=== PATIENT | female | born 1940 | race Caucasian/White ===

== ENCOUNTER 2022-05-05 14:26 | Emergency (ER) | payer MEDICARE, BC ==
[2022-05-05 14:56] VITALS: BP 175/95; PULSE 71; O2SAT 98
--- NOTE | 2022-05-05 15:16 | ERPHSYRPT ---
- History of Present Illness Source: patient Exam Limitations: no limitations Patient Subjective Stated Complaint: Pt states "I fell at [employer] the other day and I knew I would hurt but my back is really hurting and there is an area of my left osei that I feel I just have to rub." Triage Nursing Assessment: Pt presented alert and oriented X 3, skin wpd Pt ambulates with a slow gait, pt limps slightly . Pt will occasionally moan. PT in no apparent respiratory distress. Physician History: Pt fell yesterday at a store and now complains of lumbar pain. She denies LOC/Head injury. Pt simply slipped. Occurred: yesterday Reason for Fall: slipped Loss of Consciousness: no loss of consciousness Quality: aching Severity of Pain-Max: moderate Severity of Pain-Current: moderate Modifying Factors: Improves With: movement Associated Symptoms (Fall): back pain, neck pain, No abdominal pain, No confusion, No chest pain, No dizziness, No extremity injury, No headache, No lightheadedness, No muscle spasms, No nausea, No ringing in ears, No seizures, No shortness of breath, No slurred speech, No trouble walking, No vomiting, No vision changes Allergies/Adverse Reactions: codeine Adverse Reaction (Verified 05/19/14 00:22) Home Medications: Aspirin 81 mg PO DAILY 05/19/14 [History] Metoprolol Tartrate 25 mg [Lopressor 25MG Tab] 25 mg PO DAILY 05/19/14 [History] Simvastatin 20 mg PO DAILY 05/19/14 [History] Hx Tetanus, Diphtheria Vaccination/Date Given: No Hx Influenza Vaccination/Date Given: Yes Hx Pneumococcal Vaccination/Date Given: Yes Immunizations Up to Date: Yes Travel Risk - International Travel Have you traveled outside of the country in past 3 weeks: No - Coronavirus Screening Are you exhibiting any of the following symptoms?: No Close contact with a COVID-19 positive Pt in past 14-21 Days: No - Vaccine Status Have you recieved a Covid-19 vaccination: Yes 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 - Vaccination Dates Date of 2cond Vaccination (if applicable): 2020 - Review of Systems Constitutional: No Symptoms Eyes: No Symptoms Ears, Nose, & Throat: No Symptoms Respiratory: No Symptoms Cardiac: No Symptoms Abdominal/Gastrointestinal: No Symptoms Genitourinary Symptoms: No Symptoms Musculoskeletal: No Symptoms, Back Pain, Neck Pain Skin: No Symptoms Neurological: No Symptoms Psychological: No Symptoms Endocrine: No Symptoms Hematologic/Lymphatic: No Symptoms Immunological/Allergic: No Symptoms - Past Medical History Pertinent Past Medical History: Yes Cardiac History: Hypertension Other Medical History: BLADDER CA - Past Surgical History Past Surgical History: Yes Musculoskeletal: Orthopedic Surgery Female Surgical History: Hysterectomy - Social History Smoking Status: Former smoker Exposure to second hand smoke: No Drug Use: none Patient Lives Alone: No Significant Family History: no pertinent family hx - Nursing Vital Signs Nursing Vital Signs: Initial Vital Signs Temperature 97.6 F 05/05/22 14:51 Pulse Rate 71 05/05/22 14:51 Respiratory Rate 20 05/05/22 14:51 Blood Pressure 175/95 05/05/22 14:51 O2 Sat by Pulse Oximetry 98 05/05/22 14:51 Pain Scale Pain Intensity 6 - Carley Coma Score Best Eye Response ([place]): (4) open spontaneously Best Verbal Response ([place]): (5) oriented Best Motor Response ([place]): (6) obeys commands [place] Total: 15 - Physical Exam General Appearance: no apparent distress Head Injury: no evidence of injury Eye Exam: PERRL/EOMI, eyes nml inspection ENT Exam: airway nml, nml ext.inspection, No evidence of ENT injury, No clear fluid (ears), No clear fluid (nose) Neck Exam: supple, trachea midline, tenderness (C-spine TTP) Respiratory/Chest Exam: normal breath sounds, No chest tenderness, No respiratory distress Cardiovascular Exam: normal heart sounds, regular rate/rhythm, normal peripheral pulses, No murmur Gastrointestinal Exam: soft, normal bowel sounds, No tenderness Back Exam: vertebral tenderness (T-spine nttp/L-spine TTP) Extremity Exam: normal inspection, capillary refill <3 sec, pelvis stable, bony point tenderness (L lateral hip TTP), other (Pt complains of L pre-tibial "numbness" but is NTTP wo deformity/ecchymosis/edema) Peripheral Pulses: carotid (R): 2+, carotid (L): 2+ Neurologic Exam: alert, oriented x 3, cooperative, network associate II-XII nml as tested, normal mood/affect, sensation nml, No motor deficits, No sensory deficit Skin Exam: normal color, warm, dry SpO2 Interpretation: normal SpO2: 98 O2 Delivery: Room Air - Course Nursing assessment & vital signs reviewed: Yes - CT Exams Cervical Spine CT Interpretation: Tele-radiologist Report (Nothing acute/DDD) Lumbar Spine CT Interpretation: Tele-radiologist Report (Nothing acute/Hypodense area R renal cortex) Pelvis CT Interpretation: Tele-radiologist Report (No fx) Ordered Tests: Active Orders 24 hr Category Date Time Status CERVICAL SPINE WO CONTRAST [CT] Stat Exams 05/05/22 15:07 Ordered LUMBAR SPINE W/O [CT] Stat Exams 05/05/22 15:08 Ordered PELVIS WITHOUT CONTRAST [CT] Stat Exams 05/05/22 15:08 Ordered - Progress Progress Note: 05/05/22 16:15 Pt refuses pain meds Pt advised to f/u about R renal cortex lesion Counseled pt/family regarding: diagnosis, need for follow-up, rad results - Departure Departure Disposition: Home Clinical Impression: Cervical strain, Lumbar strain, Contusion of left hip, Renal lesion Condition: Fair Critical Care Time: No Referrals: DOCTOR,NO FAMILY [Primary Care Provider] - Follow up/PCP as directed Instructions: Contusion (DC), Preventing Falls Additional Instructions: Motrin/Tylenol for pain Ice to contused areas today/Heat in AM Follow up with your family MD about right kidney lesion-most likely a cyst Return to ER as needed
--- NOTE | 2022-05-05 20:16 | XRAY ---
Indication: Pain following fall one day earlier. Multiple contiguous axial images obtained through the cervical spine. Sagittal and coronal reformatted images obtained. Comparison: None Osseous structures demineralized consistent with patient's age. No acute fracture, suspicious bony lesions, or spinal canal stenosis. There is mild/moderate C3-C7 degenerative endplate spurring greatest at C5-C6. Also mild/moderate multilevel bilateral degenerative facet hypertrophy and moderate atlantoaxial degenerative changes. Sagittal and coronal reformatted images demonstrate lordotic straightening, positional versus paraspinal spasm. C4-C7 degenerative disc space narrowing greatest at C5-C6. No acute compression fracture, subluxation, or jumped facet. Normal appearing craniocervical junction. Visualized noncontrasted soft tissues demonstrates mild bilateral carotid calcifications. Lung apices demonstrates pulmonary emphysema. Base of brain unremarkable. Impression: 1. Cervical lordotic straightening, positional versus paraspinal spasm. 2. Osteopenia and multilevel degenerative changes greatest at C5-C6. 3. Incidental carotid calcifications and pulmonary emphysema. Comment: Preliminary interpretation made by C. No critical discrepancy.
--- NOTE | 2022-05-05 20:20 | XRAY ---
Indication: Pain following fall. Multiple contiguous axial images obtained through the lumbar spine. Sagittal and coronal reformatted images obtained. Comparison: CT abdomen/pelvis April 07, 2010. Osseous structures demineralized consistent with patient's age. Marked progressive worsening moderate/advanced L2-L5 degenerative disc disease as evidenced by bony sclerosis, spurring, and vacuum disc phenomena. No acute fracture, suspicious bony lesions, or spinal canal stenosis. Mild/moderate L3-S1 degenerative facet hypertrophy. 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 Worsening L3-L5 disc space loss. Stable bilateral L5 spondylolysis without listhesis. Visualized noncontrasted soft tissues again demonstrates mild scattered aortoiliac calcifications, bilateral renal cortical scarring, right upper renal cyst, and splenic calcified granulomas. Visualized liver demonstrates enlarging 1.5 cm left lobe cyst/hemangioma. Impression: 1. No acute fracture/subluxation. 2. Osteopenia with progressive worsening moderate/advanced L2-L5 degenerative disc disease. 3. Again moderate dextrorotoscoliosis, L5 spondylolysis without listhesis, arteriosclerotic disease, bilateral renal cortical scarring, right renal cyst, and enlarging hepatic cyst. Comment: Preliminary interpretation made by [facility]. No critical discrepancy..
--- NOTE | 2022-05-05 20:24 | XRAY ---
Indication: Pain following fall. Multiple contiguous axial images obtained through the pelvis with special attention to osseous structures. Comparison: April 07, 2010. Osseous structures demineralized consistent with patient's age. Stable mild bilateral hip degenerative arthropathy and right acetabular sclerotic lesions favoring bone islands. No acute fracture, dislocation, or suspicious bony lesions. Visualized noncontrasted soft tissues again demonstrates scattered arteriosclerotic calcifications and hysterectomy. A few sigmoid diverticulosis without diverticulitis. No pelvic free fluid/air. CT lumbar spine reported separately. Impression: 1. Negative acute fracture/dislocation. 2. Incidental osteopenia, degenerative changes, right acetabular bone islands, and sigmoid diverticulosis.
== END 2022-05-05 16:20 | disposition home or self-care (01) ==
LOC: ED 14:26
DX: S16.1XXA Strain of muscle, fascia and tendon at neck level, initial encounter (principal); S39.012A Strain of muscle, fascia and tendon of lower back, initial encounter; S70.02XA Contusion of left hip, initial encounter; W01.0XXA Fall on same level from slipping, tripping and stumbling without subsequent striking against object, initial encounter; Y93.01 Activity, walking, marching and hiking; Y92.512 Supermarket, store or market as the place of occurrence of the external cause; N28.9 Disorder of kidney and ureter, unspecified; I10 Essential (primary) hypertension; Z79.899 Other long term (current) drug therapy
CPT/HCPCS: 72125; 72131; 72192; 99283

== ENCOUNTER 2022-05-10 21:19 | Emergency (ER) | payer MEDICARE, BC ==
--- NOTE | 2022-05-10 21:22 | ERPHSYRPT ---
- History of Present Illness Time Seen by Provider: 05/10/22 21:22 Source: patient Exam Limitations: no limitations Physician History: This is an 81-year-old white female who presents with a generalized body rash after being exposed to outdoors where was mowing the yard. She believes she has a reaction to poison will. She is not short of breath but uncomfortable with itching redness and swelling. She had no chest pain. She has no abdominal pain. Timing/Duration: today Quality: burning, itchy, painful Severity: moderate Location: generalized Possible Causes: poison will Allergies/Adverse Reactions: codeine Adverse Reaction (Verified 05/10/22 21:26) Home Medications: Aspirin 81 mg PO DAILY 05/19/14 [History] Metoprolol Tartrate 25 mg [Lopressor 25MG Tab] 25 mg PO DAILY 05/19/14 [History] Simvastatin 20 mg PO DAILY 05/19/14 [History] Amlodipine Besylate 5 mg [Norvasc 5 mg] 5 mg PO DAILY 05/10/22 [History] Calcium Carbonate [Calcium] 500 mg PO DAILY 05/10/22 [History] Chlorthalidone 25 mg PO PRN 05/10/22 [History] Olmesartan Medoxomil 20 mg [Benicar 20 MG] 20 mg PO DAILY 05/10/22 [History] Hx Tetanus, Diphtheria Vaccination/Date Given: No Hx Influenza Vaccination/Date Given: Yes Hx Pneumococcal Vaccination/Date Given: Yes Travel Risk - International Travel Have you traveled outside of the country in past 3 weeks: No - Coronavirus Screening Are you exhibiting any of the following symptoms?: No Close contact with a COVID-19 positive Pt in past 14-21 Days: No - Vaccine Status Have you recieved a Covid-19 vaccination: Yes 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 - Vaccination Dates Date of 2cond Vaccination (if applicable): 2020 - Review of Systems Constitutional: No Symptoms Eyes: No Symptoms Ears, Nose, & Throat: No Symptoms Respiratory: No Symptoms Cardiac: No Symptoms Abdominal/Gastrointestinal: No Symptoms Genitourinary Symptoms: No Symptoms Musculoskeletal: No Symptoms Skin: Rash Neurological: No Symptoms Psychological: No Symptoms Endocrine: No Symptoms Hematologic/Lymphatic: No Symptoms Immunological/Allergic: No Symptoms All Other Systems: Reviewed and Negative - Past Medical History Pertinent Past Medical History: Yes Cardiac History: Hypertension Other Medical History: BLADDER CA - Past Surgical History Past Surgical History: Yes Musculoskeletal: Orthopedic Surgery Female Surgical History: Hysterectomy - Social History Smoking Status: Former smoker Exposure to second hand smoke: No Drug Use: none Patient Lives Alone: No Significant Family History: no pertinent family hx - Nursing Vital Signs Nursing Vital Signs: Initial Vital Signs Temperature 97.4 F 05/10/22 21:31 Pulse Rate 84 05/10/22 21:31 Respiratory Rate 16 05/10/22 21:31 Blood Pressure 127/90 05/10/22 21:31 O2 Sat by Pulse Oximetry 97 05/10/22 21:31 Pain Scale Pain Intensity 0 - Physical Exam General Appearance: no apparent distress, alert, anxiety Eye Exam: PERRL/EOMI, eyes nml inspection Ears, Nose, Throat Exam: normal ENT inspection, moist mucous membranes Neck Exam: normal inspection, non-tender, supple, full range of motion Respiratory Exam: normal breath sounds, lungs clear, airway intact, No chest tenderness, No respiratory distress Cardiovascular Exam: regular rate/rhythm, normal heart sounds, normal peripheral pulses Gastrointestinal/Abdomen Exam: No tenderness Pelvic Exam: not done Rectal Exam: not done Back Exam: normal inspection, normal range of motion, No CVA tenderness, No vertebral tenderness Extremity Exam: normal inspection, normal range of motion, pelvis stable Neurologic Exam: alert, oriented x 3, cooperative, departmental buyer II-XII nml as tested, normal mood/affect, nml cerebellar function, nml station & gait, sensation nml Skin Exam: normal color, warm, dry Lymphatic Exam: No adenopathy SpO2 Interpretation: normal O2 Delivery: Room Air - Course Nursing assessment & vital signs reviewed: Yes Ordered Tests: Active Orders 24 hr Category Date Time Status Warranty Clerk STAT Care 05/10/22 21:39 Active IV Insertion STAT Care 05/10/22 21:38 Active Pulse Oximetry (ED) STAT Care 05/10/22 21:39 Active Medication Summary Discontinued Medications Generic Name Dose Route Start Last Admin Trade Name Freq PRN Reason Stop Dose Admin Methylprednisolone Sodium 0 mg 05/10/22 21:39 05/10/22 21:45 Succinate 125 mg/ Sterile IV 05/10/22 21:40 125 mg Water 2 ml STAT ONE Administration Diphenhydramine HCl 50 mg 05/10/22 21:39 05/10/22 21:45 Diphenhydramine Hcl 50 Mg/Ml Vial IV 05/10/22 21:40 50 mg STAT ONE Administration Diphenhydramine HCl Confirm 05/10/22 21:41 Diphenhydramine Hcl 50 Mg/Ml Vial Administered 05/10/22 21:42 Dose 50 mg .ROUTE .STK-MED ONE Famotidine 40 mg 05/10/22 21:39 05/10/22 21:46 Famotidine 20 Mg Tablet PO 05/10/22 21:40 Not Given STAT ONE Famotidine Confirm 05/10/22 21:41 Famotidine 20 Mg/1 Vial Administered 05/10/22 21:42 Dose 40 mg IV .STK-MED ONE Famotidine 40 mg 05/10/22 21:46 05/10/22 21:47 Famotidine 20 Mg/1 Vial IV 05/10/22 21:47 40 mg STAT ONE Administration Methylprednisolone Sodium Succinate Confirm 05/10/22 21:41 Methylprednis Sod Succ 125 Mg/2 Ml Vial Administered 05/10/22 21:42 Dose 125 mg .ROUTE .STK-MED ONE Sterile Water Confirm 05/10/22 21:41 Water For Injection,Sterile 10 Ml Vial Administered 05/10/22 21:42 Dose 10 ml IJ .STK-MED ONE - Progress Progress: improved - Departure Departure Disposition: Home Clinical Impression: Contact dermatitis Condition: Stable Critical Care Time: No Referrals: MILI LYNN MD [Primary Care Provider] - Follow up/PCP as directed Additional Instructions: Drink plenty fluids. Take Benadryl 25 mg orally 3 times a day for the next 5 days. Fill the Pepcid and steroid medication and take as prescribed. You will have an extra refill on the steroids if needed you can fill this again. Return to the emergency department if symptoms worsen. Follow-up with your primary care physician for persistent symptoms. Prescriptions: Prednisone 10 mg [Deltasone 10 mg] 10 mg PO TID #12 tablet Famotidine 20 mg [Pepcid 20 MG] 20 mg PO DAILY #10 tablet
[2022-05-10] MEDS ORDERED: Pepcid 20 MG PO ONE (21:39)
[2022-05-10] MEDS ORDERED: solu-MEDROL 125 MG, Sterile H2O 10 ml 2 ML IV ONE ×2 (21:39)
[2022-05-10] MEDS ORDERED: BENADRYL 50 MG/ML IV ONE (21:39)
[2022-05-10] MEDS ORDERED: Sterile H2O 10 ml IJ ONE (21:41)
[2022-05-10] MEDS ORDERED: solu-MEDROL ONE (21:41)
[2022-05-10] MEDS ORDERED: BENADRYL 50 MG/ML ONE (21:41)
[2022-05-10] MEDS ORDERED: Pepcid 20 MG VIAL IV ONE ×2 (21:41→21:46)
[2022-05-10 22:15] VITALS: BP 153/84; PULSE 80; O2SAT 98
== END 2022-05-10 22:18 | disposition home or self-care (01) ==
LOC: ED 21:19
DX: L25.9 Unspecified contact dermatitis, unspecified cause (principal); I10 Essential (primary) hypertension; Z79.899 Other long term (current) drug therapy; Z79.52 Long term (current) use of systemic steroids
CPT/HCPCS: 36000; 93041; 94760; 96374; 96375; 99284; J1200; J2930

== ENCOUNTER 2022-05-14 00:20 | Emergency (ER) | payer MEDICARE, BC ==
[2022-05-14] MEDS ORDERED: Pepcid 20 MG PO ONE (00:58)
[2022-05-14] MEDS ORDERED: solu-MEDROL 125 MG, Sterile H2O 10 ml 2 ML IM ONE ×2 (00:59)
[2022-05-14] MEDS ORDERED: ATARAX 25 MG PO ONE (00:59)
--- NOTE | 2022-05-14 01:05 | ERPHSYRPT ---
- History of Present Illness Time Seen by Provider: 05/14/22 00:50 Source: patient, family Exam Limitations: no limitations Patient Subjective Stated Complaint: pt states "I was seen in the ER recently for this rash. They said it was poison will and I don't think it is." Triage Nursing Assessment: Pt ambulatory to bed by self, pt alert and oriented x3, pt c/o rash since friday, pt was seen on friday for same complaint and prescribed steriods, pt is still currently taking the prednisone at this time and has another refill for it if needed, pt has rash located on bilateral inner thighs, pt states "it is in one place and then moves to another spot." Physician History: This is an 81-year-old white female who I saw on 05/10/2022 and diagnosed her with contact dermatitis possible poison will exposure. Patient had a generalized rash and the itching and rash significantly improved during her hospital in stay in the emergency department prior to her discharge to home. However, the last couple days her symptoms have recurred. At the time of the discharge on 05/10/2022, I told the patient that she may need to refill the steroids and therefore I gave her a refill of prednisone for her to take in the event the rash did not resolve completely. She has not done that at this time. She has no shortness of breath. She is had no fever. Patient last took Benadryl 5-1/2 hours ago. The last Pepcid she took was on 05/13/2020 2 in the morning. Quality: itchy Severity: mild (Moderate) Location: extremities Possible Causes: other (Contact dermatitisunknown) Allergies/Adverse Reactions: codeine Adverse Reaction (Verified 05/10/22 21:26) Home Medications: Aspirin 81 mg PO DAILY 05/19/14 [History] Metoprolol Tartrate 25 mg [Lopressor 25MG Tab] 25 mg PO DAILY 05/19/14 [History] Simvastatin 20 mg PO DAILY 05/19/14 [History] Amlodipine Besylate 5 mg [Norvasc 5 mg] 5 mg PO DAILY 05/10/22 [History] Calcium Carbonate [Calcium] 500 mg PO DAILY 05/10/22 [History] Chlorthalidone 25 mg PO PRN 05/10/22 [History] Olmesartan Medoxomil 20 mg [Benicar 20 MG] 20 mg PO DAILY 05/10/22 [History] Hx Tetanus, Diphtheria Vaccination/Date Given: No Hx Influenza Vaccination/Date Given: Yes Hx Pneumococcal Vaccination/Date Given: Yes Immunizations Up to Date: Yes Travel Risk - International Travel Have you traveled outside of the country in past 3 weeks: No - Coronavirus Screening Are you exhibiting any of the following symptoms?: No Close contact with a COVID-19 positive Pt in past 14-21 Days: No - Vaccine Status Have you recieved a Covid-19 vaccination: 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 - Vaccination Dates Date of 2cond Vaccination (if applicable): 2020 - Review of Systems Constitutional: No Symptoms Eyes: No Symptoms Ears, Nose, & Throat: No Symptoms Respiratory: No Symptoms Cardiac: No Symptoms Abdominal/Gastrointestinal: No Symptoms Genitourinary Symptoms: No Symptoms Musculoskeletal: No Symptoms Skin: Other (Welts on skin of bilateral lower extremities) Psychological: No Symptoms Endocrine: No Symptoms Hematologic/Lymphatic: No Symptoms Immunological/Allergic: No Symptoms All Other Systems: Reviewed and Negative - Past Medical History Pertinent Past Medical History: Yes Neurological History: No Pertinent History ENT History: No Pertinent History Cardiac History: Hypertension Respiratory History: No Pertinent History Endocrine Medical History: No Pertinent History Musculoskeletal History: No Pertinent History GI Medical History: No Pertinent History History: No Pertinent History Psycho-Social History: No Pertinent History Female Reproductive Disorders: No Pertinent History Other Medical History: BLADDER CA - Past Surgical History Past Surgical History: Yes Neuro Surgical History: No Pertinent History Cardiac: No Pertinent History Respiratory: No Pertinent History Gastrointestinal: No Pertinent History Genitourinary: No Pertinent History Musculoskeletal: Orthopedic Surgery Female Surgical History: Hysterectomy - Social History Smoking Status: Former smoker Exposure to second hand smoke: No Drug Use: none Patient Lives Alone: No Significant Family History: no pertinent family hx - Nursing Vital Signs Nursing Vital Signs: Initial Vital Signs Temperature 97.1 F 05/14/22 00:42 Pulse Rate 60 05/14/22 00:42 Respiratory Rate 16 05/14/22 00:42 Blood Pressure 145/90 05/14/22 00:42 O2 Sat by Pulse Oximetry 97 05/14/22 00:42 Pain Scale Pain Intensity 3 - Physical Exam General Appearance: no apparent distress, alert, anxiety Eye Exam: PERRL/EOMI, eyes nml inspection Ears, Nose, Throat Exam: normal ENT inspection, moist mucous membranes Neck Exam: normal inspection, non-tender, supple, full range of motion Respiratory Exam: normal breath sounds, lungs clear, airway intact, No chest tenderness, No respiratory distress Cardiovascular Exam: regular rate/rhythm, normal heart sounds, normal peripheral pulses Gastrointestinal/Abdomen Exam: soft, normal bowel sounds, No tenderness Pelvic Exam: not done Rectal Exam: not done Back Exam: normal inspection, normal range of motion, No CVA tenderness, No vertebral tenderness Extremity Exam: normal inspection, normal range of motion, pelvis stable Neurologic Exam: alert, oriented x 3, cooperative, cattle examiner II-XII nml as tested, normal mood/affect, nml cerebellar function, nml station & gait, sensation nml Skin Exam: other (Welt patches bilateral lower extremities upper thighs) Lymphatic Exam: No adenopathy SpO2 Interpretation: normal SpO2: 97 O2 Delivery: Room Air - Course Nursing assessment & vital signs reviewed: Yes - Progress Progress: improved Counseled pt/family regarding: diagnosis, need for follow-up - Departure Departure Disposition: Home Clinical Impression: Contact dermatitis, Environmental allergies, [place] Condition: Stable Critical Care Time: No Referrals: MILI LYNN MD [Primary Care Provider] - Follow up/PCP as directed Additional Instructions: Continue prednisone as prescribed. Refill your next 4 days of prednisone. Stop your Benadryl. Use hydroxyzine instead. Continue Pepcid daily. Call your primary care provider on the morning of 05/14/2022 to make arranges for follow-up appointment in the event your symptoms persist. Keep your skin moist with unscented skin moisturizer. Prescriptions: Hydroxyzine HCl 25 mg [Atarax 25 mg] 25 mg PO Q6H PRN #12 tablet PRN Reason: Itching
[2022-05-14] MEDS ORDERED: Pepcid 20 MG ONE (01:13)
[2022-05-14] MEDS ORDERED: Sterile H2O 10 ml IJ ONE (01:13)
[2022-05-14] MEDS ORDERED: solu-MEDROL ONE (01:14)
[2022-05-14] MEDS ORDERED: ATARAX 25 MG ONE (01:14)
[2022-05-14 01:31] VITALS: O2SAT 98
[2022-05-14 01:33] VITALS: BP 173/89; PULSE 68
== END 2022-05-14 01:33 | disposition home or self-care (01) ==
LOC: ED 00:20
DX: L25.9 Unspecified contact dermatitis, unspecified cause (principal); Z91.09 Other allergy status, other than to drugs and biological substances; R21 Rash and other nonspecific skin eruption; I10 Essential (primary) hypertension; Z79.899 Other long term (current) drug therapy
CPT/HCPCS: 96372; 99284; J2930; A9270-GY

== ENCOUNTER 2022-08-02 20:44 | Emergency (ER) | payer MEDICARE, BC ==
[2022-08-02] MEDS ORDERED: HYDROCODONE-ACETAMIN 2.5-108/5 ML SOLUTION PO STA ×2 (21:16→22:24)
[2022-08-02] MEDS ORDERED: HYDROCODONE-ACETAMIN 2.5-108/5 ML SOLUTION ONE ×2 (21:24→22:29)
--- NOTE | 2022-08-02 21:29 | ERPHSYRPT ---
- History of Present Illness Time Seen by Provider: 08/02/22 21:00 Source: patient Exam Limitations: no limitations Patient Subjective Stated Complaint: pt states she has been feeling ill since Friday, states she feels some congestion in her chest and has been coughing a l ot, tested positive at home for covid on friday. states she is worried about pneumonia Triage Nursing Assessment: pt is alert and oriented, able to answer questions correctly, lungs are clear, pt has dry cough. sats are 98% on R.A. Physician History: 81 years old female presented in the ER with chief complaint of worsening cough. Patient reports having dry cough for almost 1 week and was tested positive for COVID-19 5 days ago. She denies any fever chills, headache but does have some URI/sinus congestion. No difficulty breathing. No chest pain but some soreness. Patient is worried about getting pneumonia. Has oxygen saturation of 98% on room air. Timing/Duration: week(s) (1), gradual onset, worse Cough Quality/Degree: moderate, dry cough Possible Cause: illness exposure Modifying Factors: Worsens With: coughing Associated Symptoms: chest pain/soreness, cough, muscle aches, nasal congestion, sore throat, No fever, No chills, No shortness of breath Allergies/Adverse Reactions: codeine Adverse Reaction (Verified 05/10/22 21:26) Home Medications: Aspirin 81 mg PO DAILY 05/19/14 [History] Metoprolol Tartrate 25 mg [Lopressor 25MG Tab] 25 mg PO DAILY 05/19/14 [History] Simvastatin 20 mg PO DAILY 05/19/14 [History] Amlodipine Besylate 5 mg [Norvasc 5 mg] 5 mg PO DAILY 05/10/22 [History] Calcium Carbonate [Calcium] 500 mg PO DAILY 05/10/22 [History] Chlorthalidone 25 mg PO PRN 05/10/22 [History] Olmesartan Medoxomil 20 mg [Benicar 20 MG] 20 mg PO DAILY 05/10/22 [History] Hx Tetanus, Diphtheria Vaccination/Date Given: No Hx Influenza Vaccination/Date Given: Yes Hx Pneumococcal Vaccination/Date Given: Yes Travel Risk - International Travel Have you traveled outside of the country in past 3 weeks: No - Coronavirus Screening Are you exhibiting any of the following symptoms?: No Close contact with a COVID-19 positive Pt in past 14-21 Days: No - Vaccine Status Have you recieved a Covid-19 vaccination: Yes [employer]: Moderna - Vaccination Dates Date of 2cond Vaccination (if applicable): unknown - Review of Systems Constitutional: Fatigue, Weakness Eyes: No Symptoms Ears, Nose, & Throat: Nose Congestion Respiratory: Cough Cardiac: No Symptoms Abdominal/Gastrointestinal: No Symptoms Genitourinary Symptoms: No Symptoms Musculoskeletal: Myalgias Skin: No Symptoms Neurological: No Symptoms Psychological: No Symptoms Endocrine: No Symptoms Hematologic/Lymphatic: No Symptoms Immunological/Allergic: No Symptoms - Past Medical History Pertinent Past Medical History: Yes Neurological History: No Pertinent History ENT History: No Pertinent History Cardiac History: Hypertension Respiratory History: No Pertinent History Endocrine Medical History: No Pertinent History Musculoskeletal History: No Pertinent History GI Medical History: No Pertinent History History: No Pertinent History Psycho-Social History: No Pertinent History Female Reproductive Disorders: No Pertinent History Other Medical History: BLADDER CA - Past Surgical History Past Surgical History: Yes Neuro Surgical History: No Pertinent History Cardiac: No Pertinent History Respiratory: No Pertinent History Gastrointestinal: No Pertinent History Genitourinary: No Pertinent History Musculoskeletal: Orthopedic Surgery Female Surgical History: Hysterectomy - Social History Smoking Status: Former smoker Exposure to second hand smoke: No Drug Use: none Patient Lives Alone: No Significant Family History: no pertinent family hx - Nursing Vital Signs Nursing Vital Signs: Initial Vital Signs Temperature 97.5 F 08/02/22 21:05 Respiratory Rate 20 08/02/22 21:05 Pain Scale Pain Intensity 4 - Physical Exam General Appearance: no apparent distress, alert Eye Exam: PERRL/EOMI Ears, Nose, Throat Exam: TMs normal, pharyngeal erythema Neck Exam: normal inspection, non-tender, supple, full range of motion Respiratory Exam: normal breath sounds, lungs clear Cardiovascular Exam: regular rate/rhythm, normal heart sounds Gastrointestinal/Abdomen Exam: soft, No tenderness Back Exam: normal inspection, normal range of motion Extremity Exam: normal inspection, normal range of motion Neurologic Exam: alert, oriented x 3, cooperative Skin Exam: normal color SpO2 Interpretation: normal SpO2: 98 O2 Delivery: Room Air Ordered Tests: Active Orders 24 hr Category Date Time Status CHEST 1 VIEW (PORTABLE) Stat Exams 08/02/22 21:10 Taken Medication Summary Discontinued Medications Generic Name Dose Route Start Last Admin Trade Name Lena PRN Reason Stop Dose Admin Hydrocodone Bitart/Acetaminophen 10 ml 08/02/22 21:16 08/02/22 21:25 Hydrocodone/Acetaminophen 5 Ml Udcup PO 08/02/22 21:17 10 ml STAT STA Administration Hydrocodone Bitart/Acetaminophen Confirm 08/02/22 21:24 Hydrocodone/Acetaminophen 5 Ml Udcup Administered 08/02/22 21:25 Dose 10 ml .ROUTE .STK-MED ONE - Progress Progress: improved Air Movement: good Progress Note: 08/02/22 22:21 Given liquid [place] for symptomatic relief. Feeling better on reevaluation. X- rays negative for any acute infiltrative process reviewed by me, official report is pending. Not in any distress. Patient is maintaining oxygen saturation around 97% on room air. Does not want any lab work done which I believe is reasonable. I will give her cough syrup to go home and outpatient follow-up recommended. Discussed signs symptoms of worsening needing return to ER which she seems understanding. Stable for discharge. Blood Culture(s) Obtained: No Antibiotics given: No Counseled pt/family regarding: diagnosis, need for follow-up, rad results - Departure Departure Disposition: Home Clinical Impression: Viral URI with cough, COVID-19 virus detected Condition: Stable Critical Care Time: No Referrals: MILI LYNN MD [Primary Care Provider] - Follow Up with PCP/3 days Instructions: Cough, Adult (DC), COVID-19 (DC) Additional Instructions: Take cough syrup as needed. Follow-up with PCP for reevaluation. Return to ER for any worsening.
[2022-08-02 22:19] VITALS: BP 141/78; PULSE 68
[2022-08-02 22:27] VITALS: O2SAT 98
--- NOTE | 2022-08-02 22:40 | XRAY ---
Indication: Cough. Positive Covid 19. Comparison: None Portable chest demonstrates a few tiny bilateral calcified granulomas. Remaining heart and lungs unremarkable. Incidental tortuous descending aorta. Bony thorax intact with mild osteopenia, degenerative changes, and levorotoscoliosis. Impression: Nonacute chest with chronic features.
== END 2022-08-02 22:38 | disposition home or self-care (01) ==
LOC: ED 20:44
DX: U07.1 COVID-19 (principal); R05.1 Acute cough; R09.81 Nasal congestion; I10 Essential (primary) hypertension
CPT/HCPCS: 71045; 99282; A9270-GY